=== PATIENT | male | born 1960 | race Caucasian/White ===

== ENCOUNTER 2017-01-04 09:26 | Emergency (ER) | payer MEDICAID, OTHER ==
[~2017-01-04] VITALS: Ht 185.4 cm; Wt 113.0 kg
[~2017-01-04 09:26] MED LIST: ASPI81TA11 PO; HYDR12.56; PRIN20TA2 PO
[2017-01-04 09:29] VITALS: BP 126/86; PULSE 85; RESP 16; TEMP 99.6; O2SAT 94
[2017-01-04] MEDS ORDERED: LISI10TA3 PO (09:58)
[2017-01-04] MEDS ORDERED: DEXT1CAP37 PO (09:58)
[2017-01-04] MEDS ORDERED: HYDR12.56 PO (09:58)
--- NOTE | 2017-01-04 10:25 | PD ---
HPI Chief Complaint: Cold / Flu Symptoms Time Seen by Provider: 10:07 Travel History International Travel<30 days: No Contact w/Intl Traveler<30days: No Traveled to known affect area: No History of Present Illness HPI He complains of runny nose and congestion and cough and body aches. Duration 2 days. Symptoms severity is moderate. PFSH Past Medical History Hx Anticoagulant Therapy: No Cancer: Yes (PROSTATE) Cardiovascular Problems: Yes (CHOL) Diabetes: No Diminished Hearing: No Endocrine: No Genitourinary: No Hepatitis: No Hiatal Hernia: No Hypertension: Yes Immune Disorder: No Musculoskeletal: Yes (LEFT SHOULDER ARTHRITIS, RIGHT HIP ARTHRITIS) Neurologic: No Psychiatric: No Reproductive: No Respiratory: No Tetanus Vaccination: > 5 Years Influenza Vaccination: No Past Surgical History Abdominal Surgery: No Body Medical Devices: NONE Cardiac Surgery: No Ear Surgery: No Endocrine Surgery: No Eye Surgery: No Genitourinary Surgery: Yes (PROSTATECTOMY) Joint Replacement: No Neurologic Surgery: No Oral Surgery: Yes (TONSILLECTOMY) Pacemaker: No Thoracic Surgery: No Other Surgery: Yes Social History Alcohol Use: No Tobacco Use: No Substance Use: No Allergies-Medications (Allergen,Severity, Reaction): Coded Allergies: No Known Allergies (Verified , 01/04/17) Reported Meds & Prescriptions Reported Meds & Active Scripts Active Reported Daytime Cold & Flu Relief (Hirecsmqhjtxdsos-Jbpndibaxngnt-Sbftnoagpnlom) 10-5- 325 mg Cap 2 Cap PO Q4H PRN Hydrochlorothiazide 12.5 Mg Tab 12.5 Mg PO DAILY Lisinopril 10 Mg Tab 10 Mg PO DAILY Review of Systems HENT: No: Headaches Cardiovascular: No: Chest Pain or Discomfort Respiratory: Positive: Cough Physical Exam Narrative GENERAL: Well-nourished, well-developed patient. SKIN: Warm and dry. HEAD: Normocephalic. EYES: No scleral icterus. No injection or drainage. NECK: Supple, trachea midline. No JVD or lymphadenopathy. CARDIOVASCULAR: Regular rate and rhythm without murmurs, gallops, or rubs. RESPIRATORY: Breath sounds equal bilaterally. No accessory muscle use. GASTROINTESTINAL: Abdomen soft, non-tender, nondistended. MUSCULOSKELETAL: No cyanosis, or edema. BACK: Nontender without obvious deformity. No CVA tenderness. Data Data Last Documented VS Vital Signs Date Time Temp Pulse Resp B/P Pulse Ox O2 Delivery O2 Flow Rate FiO2 01/04/17 09:54 16 95 Room Air 01/04/17 09:29 99.6 85 126/86 MDM Medical Decision Making Medical Screen Exam Complete: Yes Emergency Medical Condition: Yes Medical Record Reviewed: Yes Differential Diagnosis Flu syndrome, gastroenteritis, URI Narrative Course I have reviewed the patient's electronic medical record. Presentation most consistent with an acute viral flu syndrome. Supportive care discussed Diagnosis Primary Impression: Acute viral syndrome Additional Instructions: The patient was advised to follow up with their physician and return if they worsen. Med/Other Pt SpecificInfo: Other Disposition: 01 DISCHARGE HOME Condition: Stable Jeremy Rodriguez MD Jan 04, 2017 10:25
== END 2017-01-04 10:49 | disposition home or self-care (01) ==
LOC: PHEFT 09:26
DX: B34.9 Viral infection, unspecified (principal); I10 Essential (primary) hypertension
CPT/HCPCS: 99283

== ENCOUNTER 2017-05-19 05:05 | Observation (INO) | payer MEDICAID ==
[2017-05-19] VITALS (7 sets, daily range): BP systolic 117–194; BP diastolic 79–110; PULSE 47–65; RESP 16–22; TEMP 97.7–98.1; O2SAT 96–100
[~2017-05-19] VITALS: Ht 182.9 cm; Wt 116.3 kg
[~2017-05-19 05:05] MED LIST changes: -ASPI81TA11 PO; +DEXT1CAP37 PO; -HYDR12.56; +HYDR12.56 PO; +LISI10TA3 PO; -PRIN20TA2 PO
--- NOTE | 2017-05-19 05:25 | PD ---
HPI Chief Complaint: Respiratory Symptoms Time Seen by Provider: 05:12 Travel History International Travel<30 days: No Contact w/Intl Traveler<30days: No Traveled to known affect area: No History of Present Illness HPI So 56-year-old man who presents to the emergency department complaining of shortness of breath for the past hour or so. He states he was feeling fine when he went to bed. He woke up from sleep with tightness in his chest and feeling short of breath. He also felt very anxious. Try to go for a walk but he still felt short of breath with tightness in his chest and so he came to the emergency department. Tightness in his chest and nose are resolving he still has some shortness of breath. He still feels very anxious. No nausea or vomiting. No swelling in his legs. No history of previous similar symptoms. He has no real history of anxiety or panic attacks. He has not had any recent URI symptoms. No swelling in his legs. He recently had a car trip back from [place]. He does have a bad right hip. His never had blood clots before. He has had a stress test about 6 years ago. At that point he was being treated for prostate cancer. He does have a history of hypertension. No diabetes, no high cholesterol. He does not smoke tobacco. His dad of heart disease at age 53. History Past Medical History Narrative Medical Hypertension Bad right hip History of prostate cancer Tetanus Vaccination: Unknown Social History Alcohol Use: No Tobacco Use: No Allergies-Medications (Allergen,Severity, Reaction): Coded Allergies: No Known Allergies (Verified , 05/19/17) Reported Meds & Prescriptions Reported Meds & Active Scripts Active Reported Hydrochlorothiazide 12.5 Mg Tab 12.5 Mg PO DAILY Lisinopril 10 Mg Tab 10 Mg PO DAILY Review of Systems Except as stated in HPI: all other systems reviewed are Neg Physical Exam Narrative GENERAL: 56 year-old man, well-developed, well-nourished, anxious appearing. SKIN: Focused skin assessment warm/dry. HEAD: Atraumatic. Normocephalic. EYES: Pupils equal and round. No scleral icterus. No injection or drainage. ENT: No nasal bleeding or discharge. Mucous membranes pink and moist. NECK: Trachea midline. No JVD. CARDIOVASCULAR: Regular rate and rhythm. No murmur appreciated. Symmetric radial pulses bilaterally. RESPIRATORY: No accessory muscle use. Clear to auscultation. Breath sounds equal bilaterally. GASTROINTESTINAL: Abdomen soft, non-tender, nondistended. Hepatic and splenic margins not palpable. MUSCULOSKELETAL: No obvious deformities. No clubbing. No cyanosis. No edema. NEUROLOGICAL: Awake and alert. No obvious cranial nerve deficits. Motor grossly within normal limits. Normal speech. PSYCHIATRIC: Anxious. Data Data Last Documented VS Vital Signs Date Time Temp Pulse Resp B/P Pulse Ox O2 Delivery O2 Flow Rate FiO2 05/19/17 05:58 148/101 144/91 05/19/17 05:53 Room Air 05/19/17 05:53 98 05/19/17 05:52 55 20 05/19/17 05:13 98.1 Orders Electrocardiogram (05/19/17 05:20) B-Type Natriuretic Peptide (05/19/17 05:20) Ckmb (Isoenzyme) Profile (05/19/17 05:20) Complete Blood Count With Diff (05/19/17 05:20) Comprehensive Metabolic Panel (05/19/17 05:20) D-Dimer (05/19/17 05:20) Magnesium (Mg) (05/19/17 05:20) Prothrombin Time / Inr (Pt) (05/19/17 05:20) Act Partial Throm Time (Ptt) (05/19/17 05:20) Troponin I (05/19/17 05:20) Ecg Monitoring (05/19/17 05:20) Bilateral Bp Monitoring (05/19/17 05:20) Iv Access Insert/Monitor (05/19/17 05:20) Oximetry (05/19/17 05:20) Oxygen Administration (05/19/17 05:20) Aspirin Chew (Aspirin Chew) (05/19/17 05:30) Sodium Chloride 0.9% Flush (Ns Flush) (05/19/17 05:30) Sodium Chlorid 0.9% 500 Ml Inj (Ns 500 M (05/19/17 05:30) Chest, Pa & Lat (05/19/17 05:20) CKMB (05/19/17 05:27) CKMB% (05/19/17 05:27) Labs Laboratory Tests Test 05/19/17 05:27 White Blood Count 8.0 TH/MM3 Red Blood Count 4.85 MIL/MM3 Hemoglobin 14.9 GM/DL Hematocrit 44.4 % Mean Corpuscular Volume 91.5 FL Mean Corpuscular Hemoglobin 30.6 PG Mean Corpuscular Hemoglobin 33.5 % Concent Red Cell Distribution Width 12.3 % Platelet Count 227 TH/MM3 Mean Platelet Volume 8.6 FL Neutrophils (%) (Auto) 59.9 % Lymphocytes (%) (Auto) 30.5 % Monocytes (%) (Auto) 6.2 % Eosinophils (%) (Auto) 2.4 % Basophils (%) (Auto) 1.0 % Neutrophils # (Auto) 4.8 TH/MM3 Lymphocytes # (Auto) 2.4 TH/MM3 Monocytes # (Auto) 0.5 TH/MM3 Eosinophils # (Auto) 0.2 TH/MM3 Basophils # (Auto) 0.1 TH/MM3 CBC Comment DIFF FINAL Differential Comment Sodium Level 143 MEQ/L Potassium Level 3.6 MEQ/L Chloride Level 104 MEQ/L Carbon Dioxide Level 31.0 MEQ/L Anion Gap 8 MEQ/L Blood Urea Nitrogen 21 MG/DL Creatinine 1.30 MG/DL Estimat Glomerular Filtration 57 ML/MIN Rate Random Glucose 111 MG/DL Calcium Level 9.0 MG/DL Magnesium Level 2.3 MG/DL Total Bilirubin 0.3 MG/DL Aspartate Amino Transf 22 U/L (AST/SGOT) Alanine Aminotransferase 38 U/L (ALT/SGPT) Alkaline Phosphatase 79 U/L Total Creatine Kinase 226 U/L Troponin I LESS THAN 0.02 NG/ML Total Protein 7.5 GM/DL Albumin 4.1 GM/DL [facility] Medical Decision Making Medical Screen Exam Complete: Yes Emergency Medical Condition: Yes Interpretation(s) My review of EKG: Sinus bradycardia rate of 54. Slight leftward axis. QRS is a little wide at 117. No definite evidence of acute ischemia. LABS: CBC is remarkable for unremarkable. CMP is remarkable for mildly elevated BUN. Troponins negative BNP Coags D-dimer Chest x-ray: No acute disease. Differential Diagnosis ACS, PE, dissection, anxiety, reflux, other Narrative Course Medical decision making INITIAL: 56-year-old man who presents to the emergency department complaining of shortness of breath. He also complains of some chest tightness earlier. He appears very anxious. His father of heart disease at 53. He's never had panic to panic attacks before. Patient denies being under any new stress. His blood pressures pretty elevated here. We'll check labs, x-ray, EKG, reassess. Patient had a recent medium length car trip. He does have a bad hip on that side. Will check a d-dimer. Patient has symmetric pulses, dissection seems possible but less likely. Also reassess. Chris Graves MD May 19, 2017 05:25
[2017-05-19] MEDS ORDERED: SODIUM CHLORID 0.9% 500 ML INJ 500 ML IV ONE (05:30)
[2017-05-19] MEDS ORDERED: SODIUM CHLORIDE 0.9% FLUSH 10 ML FLUSH IVF PRN (05:30)
[2017-05-19] MEDS ORDERED: ASPIRIN 81 MG CHEW TAB PO ONE (05:30)
[2017-05-19 05:38] LABS: AUTOMATED NEUTROPHIL # 4.8 TH/MM3 (1.8-7.7); BASOPHIL # 0.1 TH/MM3 (0-0.2); EOSINOPHIL # 0.2 TH/MM3 (0-0.4); EOSINOPHIL % 2.4 % (0.0-4.0); HEMATOCRIT 44.4 % (39.0-51.0); HEMO FLAGS DIFF FINAL; LYMPH % 30.5 % (9.0-44.0); LYMPHOCYTE # 2.4 TH/MM3 (1.0-4.8); MEAN CELL VOLUME 91.5 FL (80.0-100.0); MEAN CORPUSCULAR HEMOGLOBIN 30.6 PG (27.0-34.0); MEAN CORPUSCULAR HGB CONC 33.5 % (32.0-36.0); MONO % 6.2 % (0.0-8.0); NEUT % 59.9 % (16.0-70.0); PLATELET COUNT 227 TH/MM3 (150-450); RED BLOOD COUNT 4.85 MIL/MM3 (4.50-5.90); RED CELL DISTRIBUTION WIDTH 12.3 % (11.6-17.2)
[2017-05-19 05:48] LABS: CHLORIDE 104 MEQ/L (98-107); POTASSIUM 3.6 MEQ/L (3.5-5.1); SODIUM (NA) 143 MEQ/L (136-145)
[2017-05-19 05:52] LABS: ANION GAP 8 MEQ/L (5-15); BLOOD UREA NITROGEN 21 MG/DL (7-18); MAGNESIUM 2.3 MG/DL (1.5-2.5)
[2017-05-19 05:55] LABS: ALT (GPT) 38 U/L (12-78); AST (GOT) 22 U/L (15-37); GLOMERULAR FILTRATION RATE 57 ML/MIN (>89)
[2017-05-19 05:57] LABS: TOTAL BILIRUBIN ADULT 0.3 MG/DL (0.2-1.0)
--- NOTE | 2017-05-19 05:57 | RADRPT ---
EXAM DATE/TIME: 05/19/2017 05:36 [facility] COMPARISON: No previous studies available for comparison. INDICATIONS : Shortness of breath, chest tightness. MEDICAL HISTORY : Hypertension. SURGICAL HISTORY : None. ENCOUNTER: Initial ACUITY: 1 day PAIN SCORE: 0/10 LOCATION: Bilateral chest FINDINGS: PA and lateral views of the chest demonstrate the lungs to be symmetrically aerated without evidence of mass, infiltrate or effusion. The cardiomediastinal contours are unremarkable. Osseous structure s are intact. CONCLUSION: No acute disease. Stone Calabrese MD on May 19, 2017 at 5:55 Board Certified Radiologist. This report was verified electronically.
[2017-05-19 05:58] LABS: ALKALINE PHOSPHATASE 79 U/L (45-117); CREATINE KINASE 226 U/L (39-308)
[2017-05-19 06:10] LABS: CKMB 1.8 NG/ML (0.5-3.6)
[2017-05-19 06:38] LABS: APTT (PATIENT) 25.4 SEC (24.3-30.1); INTERNATIONAL NORMALIZED RATIO 0.9 RATIO; PROTHROMBIN TIME - PATIENT 10.2 SEC (9.8-11.6)
[2017-05-19] MEDS ORDERED: IOHEXOL 350 MG/ML 10 ML VIAL (for RAD DIAG) IV ONE (07:26)
--- NOTE | 2017-05-19 07:36 | RADRPT ---
EXAM DATE/TIME: 05/19/2017 07:09 [facility] COMPARISON: No previous studies available for comparison. INDICATIONS : Chest tightness and short of breath. Evaluate for pulmonary embolism. IV CONTRAST: 70 cc Omnipaque 350 (iohexol) IV RADIATION DOSE: 19.24 CTDIvol (mGy) MEDICAL HISTORY : Hypertension. SURGICAL HISTORY : None. ENCOUNTER: Initial ACUITY: 1 day PAIN SCALE: 4/10 LOCATION: Right chest TECHNIQUE: Volumetric scanning of the chest was performed using a pulmonary embolism protocol MIP images were re constructed. Using automated exposure control and adjustment of the mA and/or kV according to patien t size, radiation dose was kept as low as reasonably achievable to obtain optimal diagnostic quality images. DICOM format image data is available electronically for review and comparison. Follow-up recommendations for incidentally detected pulmonary nodules are based at a minimum on nodul e size and patient risk factors according to Fleischner Society Guidelines. FINDINGS: PULMONARY ARTERIES: No filling defects are seen in the pulmonary arteries through the segmental level. LUNGS: There is no consolidation or pneumothorax . No concerning pulmonary nodule is visualized. PLEURAE: There is no pleural thickening or pleural effusion. MEDIASTINUM: There is good visualization of the great vessels of the middle mediastinum. No evidence of mediastin al or hilar adenopathy/mass. Punctate coronary artery calcifications. MUSCULOSKELETAL: Within normal limits for patient age. MISCELLANEOUS: The visualized upper abdominal organs demonstrate no acute abnormality. Moderate Hepatic steatosis. CONCLUSION: 1. No evidence for pulmonary bullosa. 2. No infiltrate. 3. Hepatic steatosis. Chin Graves MD on May 19, 2017 at 7:33 Board Certified Radiologist. This report was verified electronically.
--- NOTE | 2017-05-19 07:45 | PD ---
Data Data Last Documented VS Vital Signs Date Time Temp Pulse Resp B/P Pulse Ox O2 Delivery O2 Flow Rate FiO2 05/19/17 07:17 52 16 136/88 98 Room Air 05/19/17 05:13 98.1 Orders Electrocardiogram (05/19/17 05:20) B-Type Natriuretic Peptide (05/19/17 05:20) Ckmb (Isoenzyme) Profile (05/19/17 05:20) Complete Blood Count With Diff (05/19/17 05:20) Comprehensive Metabolic Panel (05/19/17 05:20) D-Dimer (05/19/17 05:20) Magnesium (Mg) (05/19/17 05:20) Prothrombin Time / Inr (Pt) (05/19/17 05:20) Act Partial Throm Time (Ptt) (05/19/17 05:20) Troponin I (05/19/17 05:20) Ecg Monitoring (05/19/17 05:20) Bilateral Bp Monitoring (05/19/17 05:20) Iv Access Insert/Monitor (05/19/17 05:20) Oximetry (05/19/17 05:20) Oxygen Administration (05/19/17 05:20) Aspirin Chew (Aspirin Chew) (05/19/17 05:30) Sodium Chloride 0.9% Flush (Ns Flush) (05/19/17 05:30) Sodium Chlorid 0.9% 500 Ml Inj (Ns 500 M (05/19/17 05:30) Chest, Pa & Lat (05/19/17 05:20) CKMB (05/19/17 05:27) CKMB% (05/19/17 05:27) Ct Pulmonary Angiogram (05/19/17 ) Iohexol 350 Inj (Omnipaque 350 Inj) (05/19/17 07:26) Labs Laboratory Tests Test 05/19/17 05:27 White Blood Count 8.0 TH/MM3 Red Blood Count 4.85 MIL/MM3 Hemoglobin 14.9 GM/DL Hematocrit 44.4 % Mean Corpuscular Volume 91.5 FL Mean Corpuscular Hemoglobin 30.6 PG Mean Corpuscular Hemoglobin 33.5 % Concent Red Cell Distribution Width 12.3 % Platelet Count 227 TH/MM3 Mean Platelet Volume 8.6 FL Neutrophils (%) (Auto) 59.9 % Lymphocytes (%) (Auto) 30.5 % Monocytes (%) (Auto) 6.2 % Eosinophils (%) (Auto) 2.4 % Basophils (%) (Auto) 1.0 % Neutrophils # (Auto) 4.8 TH/MM3 Lymphocytes # (Auto) 2.4 TH/MM3 Monocytes # (Auto) 0.5 TH/MM3 Eosinophils # (Auto) 0.2 TH/MM3 Basophils # (Auto) 0.1 TH/MM3 CBC Comment DIFF FINAL Differential Comment Prothrombin Time 10.2 SEC Prothromb Time International 0.9 RATIO Ratio Activated Partial 25.4 SEC Thromboplast Time D-Dimer Quantitative (PE/DVT) 0.55 MG/L FEU Sodium Level 143 MEQ/L Potassium Level 3.6 MEQ/L Chloride Level 104 MEQ/L Carbon Dioxide Level 31.0 MEQ/L Anion Gap 8 MEQ/L Blood Urea Nitrogen 21 MG/DL Creatinine 1.30 MG/DL Estimat Glomerular Filtration 57 ML/MIN Rate Random Glucose 111 MG/DL Calcium Level 9.0 MG/DL Magnesium Level 2.3 MG/DL Total Bilirubin 0.3 MG/DL Aspartate Amino Transf 22 U/L (AST/SGOT) Alanine Aminotransferase 38 U/L (ALT/SGPT) Alkaline Phosphatase 79 U/L Total Creatine Kinase 226 U/L Creatine Kinase MB 1.8 NG/ML Troponin I LESS THAN 0.02 NG/ML B-Type Natriuretic Peptide 52 PG/ML Total Protein 7.5 GM/DL Albumin 4.1 GM/DL [facility] Supervised Visit with AMANDEEP: No Narrative Course The patient was initially evaluated by the previous provider and sent out to me at the beginning of my shift pending CT pulmonary angiogram and disposition. See his note for further details. Briefly this a 56-year-old male with history of hypertension who presented for evaluation of chest tightness and shortness of breath that started this morning. He is a family history of heart disease in his father who at age of 53. Patient was provided aspirin by the previous provider. EKG shows sinus bradycardia with a rate of 54, leftward axis, moderate intraventricular conduction delay, no acute ischemic abnormalities. CBC and CMP are unremarkable. Cardiac enzymes are negative. D-dimer was slightly elevated at 0.55. Chest x-ray shows no acute disease. CT pulmonary angiogram shows no evidence for pulmonary below so, no infiltrate, hepatic steatosis. Patient was made aware of all findings. On my assessment he is resting comfortably. He will be admitted to the chest pain center for further cardiac evaluation. Case discussed with hospitalist Dr. Campos who will admit the patient to her service to the chest pain center for further cardiac evaluation. Diagnosis Primary Impression: Chest pain Qualified Code: R07.9 - Chest pain, unspecified type Admitting Information Admitting Physician Requests: Xavier Caceres MD May 19, 2017 07:45
[2017-05-19] MEDS ORDERED: SODIUM CHLORIDE 0.9% FLUSH 10 ML FLUSH IV FLUSH PRN (08:30)
[2017-05-19] MEDS ORDERED: SODIUM CHLORIDE 0.9% FLUSH 10 ML FLUSH IV FLUSH SCH (09:00)
[2017-05-19 09:10] LABS: CREATINE KINASE 188 U/L (39-308)
[2017-05-19 09:23] LABS: CKMB 1.4 NG/ML (0.5-3.6)
--- NOTE | 2017-05-19 10:27 | HHI.HP ---
[facility] Non-Staff Admission Diagnosis chest pain Diagnoses: (1) SOB (shortness of breath) Diagnosis: Principal (2) Chest tightness Diagnosis: Principal (3) Hypertensive urgency Diagnosis: Principal (4) Azotemia Diagnosis: Principal Chief Complaint: difficulty breathing, chest tightness Travel History International Travel<30 Days: No Contact w/Intl Traveler <30 Da: No Traveled to Known Affected Are: No History of Present Illness 56-year-old male with history of hypertension, right hip osteoarthritis, and history of prostate cancer presents with complaint of shortness of breath and chest tightness, admitted to chest pain center. Patient' s at bedside. Patient states he awoke at 4 to 4:30 AM this morning with difficulty breathing and felt like he was "suffocating". He states he had a cold sweat. He admits to generalized chest tightness but denies any localized pain. He denies any radiation of pain to the neck/jaws/arms/back. He denies any numbness or tingling in the upper extremities. He denies any current chest tightness or shortness of breath. Denies any pleuritic pain. Denies any lightheadedness, dizziness, or weakness. Denies any recent fevers, chills, or cold symptoms. He denies any abdominal pain, flank pain, nausea, vomiting, diarrhea, or constipation. Patient admits to having a headache but denies any blurred vision. He does admit to having some heartburn this morning feeling it over his throat/upper sternal area, but denies any regurgitation. He states he gets heartburn occasionally. He did eat some spicy food last night. Usually takes Zantac for his symptoms. The patient has OA in the right hip but denies taking any regular NSAIDs. He denies any hematochezia or melena. He did take a recent car trip back and forth to [place]. Denies any leg swelling. Denies active cancer. The patient admits to living at a high stress level as his norm stating he has a lot going on. Denies any history of hyperlipidemia or diabetes. The patient did have a treadmill stress test about 5-6 years ago and it was normal. He does not recall the local universal grinder operator's name and he has not followed with a universal grinder operator since that time. He states he was told he had a "leaky valve", but indicates it was nothing significant. Review of Systems Constitutional: COMPLAINS OF: Diaphoretic episodes, DENIES: Fever, Chills, Dizziness Eyes: DENIES: Blurred vision Ears, nose, mouth, throat: DENIES: Throat pain, Ear Pain, Running Nose Respiratory: COMPLAINS OF: Shortness of breath, DENIES: Cough Cardiovascular: COMPLAINS OF: Chest pain (tightness not pain), DENIES: Lower Extremity Edema Gastrointestinal: DENIES: Abdominal pain, Black stools, Bloody stools, Constipation, Diarrhea, Nausea, Vomiting Genitourinary: DENIES: Dysuria Musculoskeletal: DENIES: Neck pain Integumentary: DENIES: Rash Neurologic: COMPLAINS OF: Headache, DENIES: Paresthesias Past Family Social History Past Medical History Hypertension Right hip osteoarthritis History of prostate cancer Past Surgical History Prostate removal Left rotator cuff surgery 2 Reported Medications Below medications were personally verified with the patient's [facility]. Active Hydrochlorothiazide 25 Mg Tab 25 Mg PO DAILY Lisinopril 2.5 Mg Tab 2.5 Mg PO DAILY Atenolol 25 mg po daily, last filled 03/05/17, 90 day supply. Allergies: Coded Allergies: No Known Allergies (Verified , 05/19/17) Family History Father: Angina, CABG; at age 53 from coronary artery disease. Mother: 6 months after father from stroke at age of 52. 2 half siblings on mother's side with diabetes; at age 40 and 50. Social History Patient quit smoking cigarettes 22 years ago. Prior to this he smoked 2 packs per day starting in his 20s; states he smoked for 10 years. Patient drinks alcohol socially. He did have a drink last night. Denies heavy drinking or daily use. Denies history of illicit drug use. Physical Exam Vital Signs Vital Signs Date Time Temp Pulse Resp B/P Pulse Ox O2 Delivery O2 Flow Rate FiO2 05/19/17 07:17 52 16 136/88 98 Room Air 05/19/17 05:58 148/101 144/91 05/19/17 05:53 Room Air 05/19/17 05:53 98 Room Air 05/19/17 05:52 55 20 148/101 98 Room Air 05/19/17 05:16 100 Room Air 05/19/17 05:13 98.1 65 22 194/110 100 Physical Exam GENERAL: This is a pleasant well-nourished, well-developed patient, in no apparent distress. SKIN: No rashes, ecchymoses or lesions. Warm and dry. HEAD: Atraumatic. Normocephalic. EYES: Pupils equal round and reactive. No scleral icterus. No injection or drainage. ENT: Throat without erythema or exudate. Uvula midline. Airway patent. NECK: Trachea midline. No anterior lymphadenopathy. Supple. CARDIOVASCULAR: Bradycardic rate and regular rhythm without murmurs, gallops, or rubs. RESPIRATORY: Clear to auscultation. Breath sounds equal bilaterally. No wheezes , rales, or rhonchi. GASTROINTESTINAL: Abdomen soft, non-tender, nondistended. No guarding. MUSCULOSKELETAL: No lower extremity edema or calf pain bilaterally. BACK: No CVA tenderness bilaterally. NEUROLOGICAL: Awake and alert. Motor grossly within normal limits. Five out of 5 muscle strength in bilateral upper and lower extremities. Normal speech. PSYCHIATRIC: Normal mood and affect. Laboratory Laboratory Tests Test 05/19/17 05/19/17 05:27 08:36 White Blood Count 8.0 Red Blood Count 4.85 Hemoglobin 14.9 Hematocrit 44.4 Mean Corpuscular Volume 91.5 Mean Corpuscular Hemoglobin 30.6 Mean Corpuscular Hemoglobin 33.5 Concent Red Cell Distribution Width 12.3 Platelet Count 227 Mean Platelet Volume 8.6 Neutrophils (%) (Auto) 59.9 Lymphocytes (%) (Auto) 30.5 Monocytes (%) (Auto) 6.2 Eosinophils (%) (Auto) 2.4 Basophils (%) (Auto) 1.0 Neutrophils # (Auto) 4.8 Lymphocytes # (Auto) 2.4 Monocytes # (Auto) 0.5 Eosinophils # (Auto) 0.2 Basophils # (Auto) 0.1 CBC Comment DIFF FINAL Differential Comment Prothrombin Time 10.2 Prothromb Time International 0.9 Ratio Activated Partial 25.4 Thromboplast Time D-Dimer Quantitative (PE/DVT) 0.55 Sodium Level 143 Potassium Level 3.6 Chloride Level 104 Carbon Dioxide Level 31.0 Anion Gap 8 Blood Urea Nitrogen 21 Creatinine 1.30 Estimat Glomerular Filtration 57 Rate Random Glucose 111 Calcium Level 9.0 Magnesium Level 2.3 Total Bilirubin 0.3 Aspartate Amino Transf 22 (AST/SGOT) Alanine Aminotransferase 38 (ALT/SGPT) Alkaline Phosphatase 79 Total Creatine Kinase 226 188 Creatine Kinase MB 1.8 1.4 Troponin I LESS THAN 0.02 LESS THAN 0.02 B-Type Natriuretic Peptide 52 Total Protein 7.5 Albumin 4.1 Result Diagram: 05/19/1752605/19/17526 Imaging Last Impressions Chest X-Ray 05/19/17519 Signed Impressions: Service Date/Time: Friday, May 19, 2017 05:36 - CONCLUSION: No acute disease. Stone Calabrese MD CT Angiography 05/19/17 0000 Signed Impressions: Service Date/Time: Friday, May 19, 2017 07:09 - CONCLUSION: 1. No evidence for pulmonary bullosa. 2. No infiltrate. 3. Hepatic steatosis. Chin Graves MD Assessment and Plan Assessment and Plan 56-year-old male with: Chest tightness and SOB: Awoke patient from sleep this morning associated with diaphoresis. Denies any symptoms currently. BNP is normal at 52. Chest x-ray personally interpreted and appears normal. No lower extremity edema on exam. CBC unremarkable. Lung exam benign. O2 saturation 96% on room air currently. CTA of the chest negative for PE, just shows hepatic steatosis. Troponin 2 less than 0.02. EKG #1 and #2 personally interpreted with bradycardia, but no evidence of ischemia; appear similar to previous EKG on 10/09/15. Differentials include anxiety/panic versus GERD, but considering risk factors will need to rule out ischemia. -Last set of EKG and cardiac enzymes pending. -Nitroglycerin/[place]/morphine prn chest pain -Telemetry -Patient has osteoarthritis in the right hip and it also appears he is on atenolol hence why he is bradycardic, which is chronic, so will order a myocardial perfusion scan once third set of enzymes and EKG is reviewed. Keep patient NPO. He has had nothing to eat or drink since 7-8 PM last night and has had no caffeine in the last 12 hours. Hypertensive urgency: Presented with BP of 194/110 on arrival to ED. Patient states he last took his HCTZ and lisinopril yesterday afternoon although normally takes it in the morning. The pharmacy indicates the patient is also taking atenolol. Blood pressure currently good. -Continue home medications for tomorrow. Hold atenolol for now due to heart rate of 47. Azotemia: BUN 21 although does not appear prerenal. GFR low at 57. No previous labs for comparison. No urinary complaints. -Will start IV NS as he is NPO. GI prophylaxis: Pepcid 20 mg po bid. DVT prophylaxis: SCDs. 3rd EKG reviewed, appears similar to prior. Last troponin normal. Lexiscan ordered. Myocardial perfusion scan normal. EF56%. Patient was advised of coping strategies for stress including exercise. He is advised he can swim as it is low impact for his hip. He is advised to eat healthy and get plenty of sleep. Advised to reduce his work and life stress. The patient was informed he does have fatty liver. Patient states he had all of his labs done 2 weeks ago. He is advised to follow-up on his cholesterol labs. Patient is informed he is predisposed to development of heart disease based on family history. Discharge disposition: Home in good condition. Diet: Heart healthy, GERD. Patient advised to eat a low salt diet avoiding canned goods, fried foods. Advised to eat low cholesterol diet. Advised to avoid spicy or acidic foods, chocolate, caffeine, mint. Activity: Regular as tolerated. Medications: Continue home meds. Patient advised to take Zantac or Tums for occasional heartburn. Follow-up: PCP at [facility] 1 week. He is advised to discuss with his PCP regarding starting daily baby aspirin if indicated. Patient advised to return to the emergency department if he develops any worsening shortness of breath or chest pain. Discussed Condition With Patient and Arianna Arizmendi May 19, 2017 10:27
[2017-05-19] MEDS ORDERED: FAMOTIDINE 20 MG TAB PO SCH (10:30)
[2017-05-19] MEDS ORDERED: ONDANSETRON HCL 4 MG/2 ML VIAL IV PRN (10:30)
[2017-05-19] MEDS ORDERED: NITROGLYCERIN 0.4 MG SL 25 TABS/BTL SL PRN (10:30)
[2017-05-19] MEDS ORDERED: MORPHINE SULFATE 8 MG/ML INJ IV PUSH PRN (10:30)
[2017-05-19] MEDS ORDERED: ACETAMINOPHEN 500 MG CPLT PO PRN (10:30)
[2017-05-19] MEDS ORDERED: ACETAMINOPHEN/HYDROcodone 325 MG/7.5 MG TAB PO PRN (10:30)
[2017-05-19] MEDS ORDERED: HYDR25TA5 PO (10:32)
[2017-05-19] MEDS ORDERED: LISI2.5T3 PO (10:32)
[2017-05-19] MEDS ORDERED: SODIUM CHLOR 0.9% 1000 ML INJ 1,000 ML IV SCH (10:45)
[2017-05-19 11:42] LABS: CREATINE KINASE 177 U/L (39-308)
[2017-05-19 11:54] LABS: CKMB 1.2 NG/ML (0.5-3.6)
[2017-05-19] MEDS ORDERED: REGADENOSON INJ 0.4 MG/5 ML SYR IV ONE (13:23)
--- NOTE | 2017-05-19 14:21 | RADRPT ---
EXAM DATE/TIME: 05/19/2017 13:02 [place] COMPARISON: No previous studies available for comparison. INDICATIONS : Chest tightness radiating to neck. Angina. DOSE: 35 mCi Tc99m Myoview at stress. 11 mCi Tc99m Myoview at rest. 0.4 mg Lexiscan STRESS SYMPTOMS: Abdominal pressure and short of breath. EJECTION FRACTION: 56% MEDICAL HISTORY : Carcinoma, prostate. Hypertension. SURGICAL HISTORY : Prostatectomy. ENCOUNTER: Initial ACUITY: 1 day PAIN SCALE: 3/10 LOCATION: Bilateral chest TECHNIQUE: The patient underwent pharmacologic stress with infusion of prescribed dose. Continuous ECG tracing was monitored during stress. Gated SPECT imaging was performed after stress and conventional SPECT i maging was performed at rest. The examination was performed on a SPECT/CT scanner, both attenuation and non-corrected datasets were reviewed. FINDINGS: DISTRIBUTION: The maximum perfused segment at stress is in the <mid posterior> wall. PERFUSION STUDY: The pattern of perfusion at stress is within normal limits. GATED STUDY: There is intact wall motion and thickening without hypokinetic or dyskinetic segments. CONCLUSION: Normal examination. RISK CATEGORY: Low (<1% Annual Mortality Rate) Chris Olson MD on May 19, 2017 at 14:19 Board Certified Radiologist. This report was verified electronically.
--- NOTE | 2017-05-19 14:21 | EKG ---
Date Performed: 05/19/2017 Time Performed: 05:28:46 PTAGE: 56 years EKG: SINUS BRADYCARDIA BORDERLINE ECG Since PREVIOUS TRACING , no significant change noted DOCTOR: Americo Moran Interpretating Date/Time 05/19/2017 14:20:12
--- NOTE | 2017-05-19 14:24 | EKG ---
Date Performed: 05/19/2017 Time Performed: 08:25:55 PTAGE: 56 years EKG: SINUS BRADYCARDIA BORDERLINE ECG PREVIOUS TRACING : 05/19/2017 05.28 DOCTOR: Americo Moran Interpretating Date/Time 05/19/2017 14:23:19
--- NOTE | 2017-05-19 14:25 | TR ---
Date Performed: 05/19/2017 Time Performed: 13:33:00 DOCTOR: Americo Moran DRUG LIST: CLINICAL HISTORY: CHEST PAIN REASON FOR TEST: REASON FOR ENDING: OBSERVATION: CONCLUSION: Lexiscan stress test was performed under standard four minute protocol. [place] e was injected one minute prior to ending the test. No electrocardiographic abormalities were present to suggest ischemia. Nuclear imaging and interpretation are pending. COMMENTS:
--- NOTE | 2017-05-19 15:21 | HHI.DCPOC ---
Discharge Care Plan Diagnosis: (1) Chest tightness (2) SOB (shortness of breath) (3) Hypertensive urgency (4) Azotemia Your Health Problems Are: Chest Pain Shortness of Breath Goals to Promote Your Health * To prevent worsening of your condition and complications * To maintain your health at the optimal level Directions to Meet Your Goals Take your medications as prescribed Follow your dietary instruction Follow activity as directed Keep your appointments as scheduled Take your immunizations and boosters as scheduled If your symptoms worsen call your PCP, if no PCP go to Urgent Care Center or Emergency Room Smoking is Dangerous to Your Health. Avoid second hand smoke Call the 24-hour hour crisis hotline for domestic abuse at Arianna Rodríguez May 19, 2017 15:21
[2017-05-20] MEDS ORDERED: HYDROCHLOROTHIAZIDE 25 MG TAB PO SCH (09:00)
[2017-05-20] MEDS ORDERED: LISINOPRIL 5 MG TAB PO SCH (09:00)
--- NOTE | 2017-05-20 16:59 | EKG ---
Date Performed: 05/19/2017 Time Performed: 11:34:15 PTAGE: 56 years EKG: SINUS BRADYCARDIA MODERATE INTRAVENTRICULAR CONDUCTION DELAY BORDERLINE ECG Since PREVIOUS TRACING , no significant change noted PREVIOUS TRACIN05/19/2017 08.25 DOCTOR: Gabrielle Ziegler Interpretating Date/Time 05/20/2017 16:59:31
[2017-05-21] MEDS ORDERED: ASPIRIN 325 MG TAB PO SCH (09:00)
== END 2017-05-19 15:33 | disposition home or self-care (01) ==
LOC: PHED 05:05 → PHEDA 08:03 → PHEDH 12:03
PROVIDERS: ADMIT Hospitalist; ATTEND Hospitalist
DX: R07.89 Other chest pain (principal); R06.02 Shortness of breath; R61 Generalized hyperhidrosis; K76.0 Fatty (change of) liver, not elsewhere classified; R00.1 Bradycardia, unspecified; I16.0 Hypertensive urgency; R79.89 Other specified abnormal findings of blood chemistry; M16.11 Unilateral primary osteoarthritis, right hip; I10 Essential (primary) hypertension; R51 Headache; R12 Heartburn; I45.9 Conduction disorder, unspecified; I20.9 Angina pectoris, unspecified; Z87.891 Personal history of nicotine dependence; Z79.899 Other long term (current) drug therapy; Z85.46 Personal history of malignant neoplasm of prostate; Z82.49 Family history of ischemic heart disease and other diseases of the circulatory system
CPT/HCPCS: 71020; 71275; 78452; 80053; 82550; 82552; 83735; 83880; 84484; 85025; 85379; 85610; 85730; 93005; 93017; 96365; 99285; A9502; G0378; J2785; J7030; J7040; Q9967